=== PATIENT | female | born 1975 | race Two or more races ===

== ENCOUNTER 2024-11-08 11:41 | Emergency (ER) | payer OTHER ==
[~2024-11-08] VITALS: Ht 152.4 cm; Wt 86.2 kg
[2024-11-08 11:52] VITALS: TEMP 98.1
[2024-11-08] MEDS ORDERED: SUMATRIPTAN SUCCINATE 6 MG/0.5 ML VIAL SQ ONE (12:14)
[2024-11-08] MEDS: SUMATRIPTAN SUCCINATE 6 MG/0.5 ML VIAL SQ ONE (12:17)
[2024-11-08] MEDS ORDERED: SUMA50TA PO (13:38)
[2024-11-08 13:51] VITALS: BP 135/85; O2SAT 99
== END 2024-11-08 13:50 | disposition home or self-care (01) ==
LOC: ER 11:47
DX: R51.9 Headache, unspecified (principal); Z60.2 Problems related to living alone
CPT/HCPCS: 99285; 70450; 96372; J3030